=== PATIENT | female | born 1960 | race Caucasian/White ===

== ENCOUNTER → 2020-05-03 | Outpatient (CLI) | payer MEDICARE ==
--- NOTE | 2020-05-03 12:39 | CT ---
EXAMINATION TYPE: CT abdomen pelvis w con DATE OF EXAM: 05/03/2020 COMPARISON: None HISTORY: Abdominal pain and swelling with diarrhea CT DLP: 426.8 mGycm CONTRAST: CT scan of the abdomen and pelvis is performed with Oral Contrast and with IV Contrast, patient injec henry with 100 mL of Isovue 300. FINDINGS: LUNG BASES-: No visible nodule. No infiltrate. LIVER/GB: There is evidence of cholelithiasis. No gallbladder wall thickening is identified. There is mild hepatic steatosis. No space occupying hepatic lesion. Biliary tree is of normal caliber. PANCREAS: No inflammation. No distinct mass. SPLEEN: No splenic enlargement. No lesion seen. ADRENALS: No nodule. No thickening. KIDNEYS/BLADDER: No hydronephrosis. No nephrolithiasis. No distinct renal mass. Urinary bladder g rossly unremarkable. BOWEL: Normal appendix. Normal bowel caliber. No inflammation. GENITAL ORGANS: No gross abnormality. LYMPH NODES: No greater than 1cm abdominal or pelvic lymph nodes are appreciated. AORTA: No significant abnormality. OSSEOUS STRUCTURES: No significant abnormality is seen. OTHER: No significant additional abnormality is seen. IMPRESSION: 1. No evidence for intra-abdominal mass. 2. Uncomplicated cholelithiasis. 3. Mild hepatic steatosis. 4. Mild fecal stasis.
== END | disposition home or self-care (01) ==
LOC: EEVIPCON 10:10 → RADCTMAIN 10:10
PROVIDERS: ATTEND Surgery
DX: K80.20 Calculus of gallbladder without cholecystitis without obstruction (principal); K76.0 Fatty (change of) liver, not elsewhere classified; R19.5 Other fecal abnormalities
CPT/HCPCS: 74177; Q9967

== ENCOUNTER 2020-06-10 21:16 | Emergency (ER) | payer MEDICARE ==
[2020-06-10] MEDS ORDERED: methylPREDNISolone SOD SUCCI 125 MG/2 ML VIAL IV STA (21:40)
[2020-06-10] MEDS ORDERED: FAMOTIDINE 20 MG/2 ML VIAL IV STA (21:40)
[2020-06-10] MEDS ORDERED: diphenhydrAMINE 50 MG/ML 1 ML VIAL IVP STA (21:40)
[2020-06-10] MEDS ORDERED: SODIUM CHLORIDE 0.9% 500 ML 500 ML IV STA (21:40)
--- NOTE | 2020-06-10 21:51 | ED ---
Abdominal Pain HPI - General Chief Complaint: Abdominal Pain Stated Complaint: Abd Pain Time Seen by Provider: 06/10/20 21:25 Source: patient, Caregiver Mode of arrival: ambulatory Limitations: physical limitation - History of Present Illness Initial Comments: 60 year-old female patient with history of Down's Syndrome presents to the emergency department for evaluation of abdominal pain and generalized rash. Patient has been having the pain on and off for the last month. She has lost 5lbs without trying. Sister is present and states that pain occurs every evening. Recently patient has been refusing dinner. She reports normal bowel movements. Normal urination. Denies vomiting, fever, or chills. She did have a CT abdomen and pelvis in April which showed gall stones and fecal stasis, but no other abnormalities. No history of abdominal surgery. Patient denies any recent rash, cough, shortness of breath, chest pain, back pain, numbness, tingli ng, dizziness, weakness, hematuria, dysuria, urinary urgency, urinary frequency, headache, visual changes, or any other complaints. - Related Data Home Medications Medication Instructions Recorded Confirmed Bacitracin Zinc Oint 1 applic TOPICAL BID 06/10/20 06/10/20 Betamethasone Dipropionate 1 applic TOPICAL BID 06/10/20 06/10/20 [Diprolene AF 0.05% Cream] Sulfamethox-Tmp 800-160Mg [Bactrim 1 tab PO Q12H 06/10/20 06/10/20 DS 800-160 mg] Previous Rx's Medication Instructions Recorded Cephalexin [Keflex] 500 mg PO Q6HR #40 cap 06/11/20 Famotidine [Pepcid] 20 mg PO DAILY #3 tablet 06/11/20 predniSONE 50 mg PO DAILY #3 tab 06/11/20 Allergies Allergy/AdvReac Type Severity Reaction Status Date / Time No Known Allergies Allergy Verified 06/10/20 21:59 Review of Systems ROS Statement: Those systems with pertinent positive or pertinent negative responses have been documented in the HPI. ROS Other: All systems not noted in ROS Statement are negative. Past Medical History Additional Past Medical History / Comment(s): Down's Syndrome History of Any Multi-Drug Resistant Organisms: MRSA Date of last positivie culture/infection: 06/02/20 MDRO Source:: FACE Past Surgical History: No Surgical Hx Reported Past Psychological History: No Psychological Hx Reported Smoking Status: Never smoker Past Alcohol Use History: None Reported Past Drug Use History: None Reported General Exam Limitations: physical limitation General appearance: alert, in no apparent distress, other (This is a well- developed, well-nourished adult female patient in no acute distress. Vital signs upon presentation are temperature 98.5F, pulse 132, respirations 20, blood pressure 136/76, pulse ox 99% on room air.) Respiratory exam: Present: normal lung sounds bilaterally. Absent: respiratory distress, wheezes, rales, rhonchi, stridor Cardiovascular Exam: Present: regular rate, normal rhythm, normal heart sounds. Absent: systolic murmur, diastolic murmur, rubs, gallop, clicks GI/Abdominal exam: Present: soft, tenderness (generalized), normal bowel sounds. Absent: distended, guarding, rebound, rigid Neurological exam: Present: alert, oriented X3, CN II-XII intact Psychiatric exam: Present: normal affect, normal mood Skin exam: Present: warm, dry, intact, normal color, rash (Generalized lacy erythematous rash with some petechiae over the anterior legs. ) Course Vital Signs 06/10/20 06/10/20 06/10/20 21:19 22:00 22:52 Temperature 98.5 F 101.2 F H 99.9 F H Pulse Rate 132 H 128 H 70 Respiratory 20 20 Rate Blood Pressure 136/76 104/50 O2 Sat by Pulse 99 97 Oximetry 06/11/20 00:11 Temperature 98.8 F Pulse Rate 60 Respiratory 18 Rate Blood Pressure 99/54 O2 Sat by Pulse 99 Oximetry Medical Decision Making - Medical Decision Making 60-year-old female patient presents to the emergency department today for evalu ation of intermittent abdominal pain over the last month seem to be worse tonight. Physical examination did reveal wounds with surrounding erythema over the face. She also had a generalized erythematous lacy rash consistent with drug eruption. Labs reviewed and did reveal decreased lymphocyte count is 0.8. Coags are normal. Sodium was 133, BUN 21, creatinine 1.48. Glucose 119. Lipase is 408. Urinalysis shows a cloudy appearance with large leukocyte esterase, 14 red blood cells, 182 white blood cells, few bacteria, and rare mucous. She tested negative for COVID-19. She does have a known gallstones I did perform ultrasound of the abdomen which showed a large gallstone in the gallbladder neck but no dilated ducts, no signs of cholecystitis, negative Johnson sign. She did have evidence for urinary tract infection we will change her from the Bactrim she was taking for her face to Keflex. She is instructed to continue applying steroid cream and bacitracin to the face that she was prescribed by the core cutter. We will add Bactrim to her ALLERGY list. She'll be discharged follow up with Dr. Law evaluation. Return parameters were discussed in detail. Sister verbalizes understanding and agrees with this plan. - Lab Data Result diagrams: 06/10/20 21:53 06/10/20 21:53 Lab Results 06/10/20 06/10/20 06/10/20 Range/Units 21:53 21:53 21:53 WBC 4.1 (3.8-10.6) k/uL RBC 4.28 (3.80-5.40) m/uL Hgb 12.8 (11.4-16.0) gm/dL Hct 38.1 (34.0-46.0) % MCV 88.9 (80.0-100.0) fL MCH 29.9 (25.0-35.0) pg MCHC 33.6 (31.0-37.0) g/dL RDW 14.6 (11.5-15.5) % Plt Count 269 (150-450) k/uL MPV 6.9 Neutrophils % 66 % Lymphocytes % 19 % Monocytes % 4 % Eosinophils % 7 % Basophils % 2 % Neutrophils # 2.7 (1.3-7.7) k/uL Lymphocytes # 0.8 L (1.0-4.8) k/uL Monocytes # 0.2 (0-1.0) k/uL Eosinophils # 0.3 (0-0.7) k/uL Basophils # 0.1 (0-0.2) k/uL PT (9.0-12.0) sec INR (<1.2) APTT (22.0-30.0) sec Sodium 133 L (137-145) mmol/L Potassium 4.4 (3.5-5.1) mmol/L Chloride 100 (98-107) mmol/L Carbon Dioxide 21 L (22-30) mmol/L Anion Gap 12 mmol/L BUN 21 H (7-17) mg/dL Creatinine 1.48 H (0.52-1.04) mg/dL Est GFR (CKD-EPI)AfAm 45 (>60 ml/min/1.73 sqM) Est GFR (CKD-EPI)NonAf 39 (>60 ml/min/1.73 sqM) Glucose 119 H (74-99) mg/dL Plasma Lactic Acid Jewel 1.2 (0.7-2.0) mmol/L Calcium 8.5 (8.4-10.2) mg/dL Total Bilirubin 0.3 (0.2-1.3) mg/dL AST 27 (14-36) U/L ALT 12 (4-34) U/L Alkaline Phosphatase 89 (38-126) U/L Total Protein 7.5 (6.3-8.2) g/dL Albumin 3.5 (3.5-5.0) g/dL Lipase 408 H (23-300) U/L Urine Color Urine Appearance (Clear) Urine pH (5.0-8.0) Ur Specific [place] (1.001-1.035) Urine Protein (Negative) Urine Glucose (UA) (Negative) Urine Ketones (Negative) Urine Blood (Negative) Urine Nitrite (Negative) Urine Bilirubin (Negative) Urine Urobilinogen (<2.0) mg/dL Ur Leukocyte Esterase (Negative) Urine RBC (0-5) /hpf Urine WBC (0-5) /hpf Ur Squamous Epith Cells (0-4) /hpf Urine Bacteria (None) /hpf Hyaline Casts (0-2) /lpf Urine Mucus (None) /hpf Coronavirus (PCR) (Not Detectd) 06/10/20 06/10/20 06/10/20 Range/Units 22:21 22:30 23:00 WBC (3.8-10.6) k/uL RBC (3.80-5.40) m/uL Hgb (11.4-16.0) gm/dL Hct (34.0-46.0) % MCV (80.0-100.0) fL MCH (25.0-35.0) pg MCHC (31.0-37.0) g/dL RDW (11.5-15.5) % Plt Count (150-450) k/uL MPV Neutrophils % % Lymphocytes % % Monocytes % % Eosinophils % % Basophils % % Neutrophils # (1.3-7.7) k/uL Lymphocytes # (1.0-4.8) k/uL Monocytes # (0-1.0) k/uL Eosinophils # (0-0.7) k/uL Basophils # (0-0.2) k/uL PT 10.9 (9.0-12.0) sec INR 1.0 (<1.2) APTT 22.9 (22.0-30.0) sec Sodium (137-145) mmol/L Potassium (3.5-5.1) mmol/L Chloride (98-107) mmol/L Carbon Dioxide (22-30) mmol/L Anion Gap mmol/L BUN (7-17) mg/dL Creatinine (0.52-1.04) mg/dL Est GFR (CKD-EPI)AfAm (>60 ml/min/1.73 sqM) Est GFR (CKD-EPI)NonAf (>60 ml/min/1.73 sqM) Glucose (74-99) mg/dL Plasma Lactic Acid Jewel (0.7-2.0) mmol/L Calcium (8.4-10.2) mg/dL Total Bilirubin (0.2-1.3) mg/dL AST (14-36) U/L ALT (4-34) U/L Alkaline Phosphatase (38-126) U/L Total Protein (6.3-8.2) g/dL Albumin (3.5-5.0) g/dL Lipase (23-300) U/L Urine Color Yellow Urine Appearance Cloudy H (Clear) Urine pH 6.0 (5.0-8.0) Ur Specific [place] 1.020 (1.001-1.035) Urine Protein Trace H (Negative) Urine Glucose (UA) Negative (Negative) Urine Ketones Negative (Negative) Urine Blood Negative (Negative) Urine Nitrite Negative (Negative) Urine Bilirubin Negative (Negative) Urine Urobilinogen <2.0 (<2.0) mg/dL Ur Leukocyte Esterase Large H (Negative) Urine RBC 14 H (0-5) /hpf Urine WBC 182 H (0-5) /hpf Ur Squamous Epith Cells 3 (0-4) /hpf Urine Bacteria Few H (None) /hpf Hyaline Casts 1 (0-2) /lpf Urine Mucus Rare H (None) /hpf Coronavirus (PCR) Not Detected (Not Detectd) - Radiology Data Radiology results: report reviewed, image reviewed Ultrasound of the right upper quadrant abdomen was obtained. Report was reviewed in its entirety. Impression by Dr. Pace shows large gallstone in the gallbladder neck. No dilated exudate no gallbladder wall thickening to suggest acute cholecystitis. Disposition Clinical Impression: UTI (urinary tract infection), Drug rash, Staph skin infection Disposition: HOME SELF-CARE Condition: Good Instructions (If sedation given, give patient instructions): Urinary Tract Infection in Women (ED), Cellulitis (ED), Acute Rash (ED) Additional Instructions: Take medications as directed. Follow-up with the primary care physician for recheck in 1-2 days. If abdominal pain continues follow-up with Dr. Law. Return to the emergency department for evaluation for any new, worsening, or concerning symptoms. Prescriptions: Cephalexin [Keflex] 500 mg PO Q6HR #40 cap Famotidine [Pepcid] 20 mg PO DAILY #3 tablet predniSONE 50 mg PO DAILY #3 tab Is patient prescribed a controlled substance at d/c from ED?: No Referrals: Wade Law MD [Medical Doctor] - 1-2 days Time of Disposition: 00:27
[2020-06-10] MEDS ORDERED: ACETAMINOPHEN TAB 325 MG TAB PO STA (22:01)
[2020-06-10 22:06] LABS: Basophils # (A) 0.1 k/uL (0-0.2); Basophils % (A) 2 %; Eosinophils # (A) 0.3 k/uL (0-0.7); Eosinophils % (A) 7 %; HCT 38.1 % (34.0-46.0); HGB 12.8 gm/dL (11.4-16.0); Lymphocytes # (A) 0.8 k/uL (1.0-4.8); Lymphocytes % (A) 19 %; MCH 29.9 pg (25.0-35.0); MCHC 33.6 g/dL (31.0-37.0); MCV 88.9 fL (80.0-100.0); Mean Platelet Volume 6.9; Monocytes # (A) 0.2 k/uL (0-1.0); Monocytes % (A) 4 %; Neutrophils # (A) 2.7 k/uL (1.3-7.7); Neutrophils % (A) 66 %; Platelet Count 269 k/uL (150-450); RBC 4.28 m/uL (3.80-5.40); RDW 14.6 % (11.5-15.5); WBC 4.1 k/uL (3.8-10.6)
[2020-06-10 22:18] LABS: Albumin 3.5 g/dL (3.5-5.0); Calcium 8.5 mg/dL (8.4-10.2); Potassium 4.4 mmol/L (3.5-5.1); Total Bilirubin 0.3 mg/dL (0.2-1.3); Total Protein 7.5 g/dL (6.3-8.2)
[2020-06-10 22:41] LABS: Appearance,Urine Cloudy (Clear); Bacteria,Urine Few /hpf; Bilirubin,Urine Negative (Negative); Blood,Urine Negative (Negative); Color,Urine Yellow; Glucose,Urine (UA) Negative (Negative); Hyaline Casts,Urine 1 /lpf (0-2); Ketones,Urine Negative (Negative); Leukocyte Esterase,Urine Large (Negative); Mucus,Urine Rare /hpf; Nitrite,Urine Negative (Negative); Protein,Urine Trace (Negative); RBC,Urine 14 /hpf (0-5); Squamous Epithelial Cell,Urine 3 /hpf (0-4); Urobilinogen,Urine <2.0 mg/dL (<2.0); WBC,Urine 182 /hpf (0-5)
[2020-06-10] MEDS ORDERED: cefTRIAXone IN SWFI 1,000 MG/10 ML SYRINGE IVP STA (22:48)
[2020-06-10 23:18] LABS: Partial Thromboplastin Time 22.9 sec (22.0-30.0); Prothrombin Time 10.9 sec (9.0-12.0)
--- NOTE | 2020-06-11 00:06 | US ---
EXAMINATION TYPE: US abdomen limited DATE OF EXAM: 06/10/2020 COMPARISON: CT 06/10/2020 CLINICAL HISTORY: elevated lipase; hx gallstones. Limited exam due to overlying bowel gas EXAM MEASUREMENTS: Liver Length: 14.9 cm Gallbladder Wall: 0.1 cm CBD: 0.3 cm Right Kidney: 8.4 x 3.1 x 3.7 cm No focal liver defect. Pancreas: Obscured by bowel gas Liver: wnl Gallbladder: Stone visualized measuring 1.5 cm Evidence for sonographic Johnson's sign: No CBD: wnl Right Kidney: No hydronephrosis or masses seen IMPRESSION: There is a large gallstone in the gallbladder neck. No dilated ducts. No gallbladder wall thickening to suggest acute cholecystitis.
[2020-06-11 00:12] VITALS: BP 99/54; PULSE 60; RESP 18; TEMP 98.8
[2020-06-11] MEDS ORDERED: CEPHALEXIN 500MG STARTER PACK 4 CAP BTL PO STA (00:25)
== END 2020-06-11 00:56 | disposition home or self-care (01) ==
LOC: EEVIPCON 21:16 → EC 21:16
DX: N39.0 Urinary tract infection, site not specified (principal); L08.89 Other specified local infections of the skin and subcutaneous tissue; L27.0 Generalized skin eruption due to drugs and medicaments taken internally; K80.80 Other cholelithiasis without obstruction; Z20.822 Contact with and (suspected) exposure to COVID-19; Z79.899 Other long term (current) drug therapy; Z86.14 Personal history of Methicillin resistant Staphylococcus aureus infection; B95.8 Unspecified staphylococcus as the cause of diseases classified elsewhere
CPT/HCPCS: 36415; 80053; 83605; 83690; 85025; 85610; 85730; 81001; 87086; 87635; 76705; 99284; 96374; 96375 ×3; J1200; J2930; J0696

== ENCOUNTER → 2020-11-09 | Outpatient (CLI) | payer MEDICARE ==
[2020-11-10 02:28] LABS: Gliadin AB IgA, Deaminated NEGATIVE (NEGATIVE); Gliadin AB IgA, Unit 11.6 U/mL; Gliadin AB IgG, Deaminated NEGATIVE (NEGATIVE)
== END | disposition home or self-care (01) ==
LOC: LABWHC1 16:19
PROVIDERS: ATTEND Nurse Practitioner
DX: K52.9 Noninfective gastroenteritis and colitis, unspecified (principal)
CPT/HCPCS: 36415; 83516; 83630; 85652; 86140; 87045; 87046; 87328; 87329

== ENCOUNTER → 2021-07-06 | Outpatient (CLI) | payer MEDICARE ==
--- NOTE | 2021-07-06 17:58 | BD ---
EXAMINATION TYPE: Axial Bone Density DATE OF EXAM: 07/06/2021 COMPARISON: NONE CLINICAL HISTORY: 61 YR OLD FEMALE.....ICD-10 CODE: Z78.0 MENOPAUSAL Height: 58.8 Weight: 119 FRAX RISK QUESTIONS: NOTHING TO NOTE HERE RISK FACTORS HISTORY OF: Family History of Osteoporosis: GRANDMOTHER NO HIP FX Postmenopausal woman: YES, AT ABOUT 54 YRS OLD Hyperparathyroidism: NO Adrenal Insufficiency: NO MEDICATIONS: Additional Medications: ANTISPASMODIC FOR COLON, VIT D, Additional History: COLON, AND VIT D, PT CHALLENGED...SISTER ACCOMPANIED HER TODAY.. EXAM MEASUREMENTS: Bone mineral densitometry was performed using the [employer] System. Bone mineral density as measured about the Lumbar spine is: ----- L1-L4(G/cm2): 1.017 T Score Values are as follows: ----- L1: -1.1 ----- L2: -1.2 ----- L3: -1.6 ----- L4: -1.7 ----- L1-L4: -1.4 Bone mineral density THIS IS HER FIRST DEXA SCAN......BASELINE STUDY Bone mineral density about the R hip (g/cm2): 0.748 Bone mineral density about the L hip (g/cm2): 0.456 T Score values are as follows: -----R Neck: -2.6 -----L Neck: -2.3 -----R Total: -2.1 -----L Total: -2.0 Bone mineral density BASELINE STUDY FRAX%s: THERE IS A 11.9% CHANCE FOR A MAJOR OSTEOPOROTIC FX AND A 2.5% FOR HER HIPS.....PROBABILI TY FOR FX IN 10 YRS TIME IMPRESSION: Osteoporosis (T Score less than -2.5). There is increased fracture risk and therapy is usually indicated based on age. Re-Screen 1-2 years. NOTE: T-SCORE=SD OF THE YOUNG ADULT MEAN.
== END | disposition home or self-care (01) ==
LOC: RADBDWWP 09:53
PROVIDERS: ATTEND Obstetrics & Gynecology
DX: M81.0 Age-related osteoporosis without current pathological fracture (principal)
CPT/HCPCS: 77067; 77080

== ENCOUNTER → 2021-09-25 | Outpatient (CLI) | payer MEDICARE ==
--- NOTE | 2021-09-25 09:13 | US ---
EXAMINATION TYPE: US abdomen complete DATE OF EXAM: 09/25/2021 COMPARISON: CT May 03, 2020 CLINICAL HISTORY: OTHER CHOLELITHIASIS WITHOUT OBSTRUCTION. Patient's father was present for the exam and gave patient history: abdominal pain. EXAM MEASUREMENTS: Liver Length: 13.1 cm Gallbladder Wall: 0.17 cm CBD: 0.28 cm Spleen: 9.1 cm Right Kidney: 9.0 x 4.2 x 3.6 cm Left Kidney: 9.8 x 3.9 x 4.0 cm Exam is limited due to gas. Pancreas: Limited due to gas. Liver: Appears slightly coarse in echotexture. Hyperechoic area seen within the right lobe: 0.8 x 1. 0 x 0.8 cm. Gallbladder: Hyperechoic area with posterior shadowing seen within: 2.1 x 1.6 x 1.2 cm. Evidence for sonographic Johnson's sign: No CBD: Portions seen appear wnl. Spleen: Appears wnl. Right Kidney: Limited due to rib shadow. Hyperechoic focus seen: 0.3 x 0.4 x 0.4 cm. Left Kidney: Hyperechoic focus seen: 0.4 x 0.4 x 0.4 cm. Upper IVC: Appears wnl Abd Aorta: Iliacs are obscured by bowel gas. No aneurysm and visualized abdominal aorta. IVC is patent near the hepatic dome. Visualized pancreas shows no obvious mass or ductal dilatation. Visualized liver is slightly heterogeneous in appearance without distinct mass or ductal dilatation. There is 2.1 cm shadowing hyperechoic lesion within gallbladder favoring mobile stone. Technologist d oes not say if mobile. A large polyp would be more worrisome. No surrounding fluid or abnormal wall t hickening. Nonspecific nonshadowing tiny hyperechoic foci bilateral kidneys could reflect nonobstruct ing renal calculi. No hydronephrosis seen bilaterally. IMPRESSION: Single large gallstone or possible large polyp within gallbladder redemonstrated. No seco ndary ultrasound evidence for acute cholecystitis. Consider excision of gallbladder as large polyp ca nnot be excluded.
== END | disposition home or self-care (01) ==
LOC: RADUSWWP 07:00
PROVIDERS: ATTEND Internal Medicine Geriatric Medicine
DX: K80.80 Other cholelithiasis without obstruction (principal)
CPT/HCPCS: 76700

== ENCOUNTER 2023-10-31 09:53 | Observation (INO) | payer MEDICARE, OTHER ==
--- NOTE | 2023-10-31 11:17 | XR ---
EXAMINATION TYPE: XR ankle complete RT DATE OF EXAM: 10/31/2023 COMPARISON: NONE HISTORY: Pain TECHNIQUE: Frontal, lateral and oblique images of the right ankle are obtained. COMPARISON: None. FINDINGS: There is no acute fracture/dislocation evident. The joint spaces appear within normal cummins its. The overlying soft tissue appears unremarkable. IMPRESSION: There is no acute fracture or dislocation seen.
[2023-10-31 12:00] LABS: Basophils % (A) 0 %; Eosinophils % (A) 0 %; HCT 38.8 % (34.0-46.0); HGB 12.7 gm/dL (11.4-16.0); Lymphocytes # (A) 0.6 k/uL (1.0-4.8); Lymphocytes % (A) 7 %; MCH 32.4 pg (25.0-35.0); MCHC 32.8 g/dL (31.0-37.0); MCV 98.8 fL (80.0-100.0); Mean Platelet Volume 8.4; Monocytes # (A) 0.7 k/uL (0-1.0); Monocytes % (A) 8 %; Neutrophils # (A) 7.1 k/uL (1.3-7.7); Neutrophils % (A) 83 %; Platelet Count 218 k/uL (150-450); RBC 3.93 m/uL (3.80-5.40); WBC 8.6 k/uL (3.8-10.6)
--- NOTE | 2023-10-31 12:31 | ED ---
General Adult HPI - General Chief complaint: Extremity Injury, Lower Stated complaint: Abn Labs Time Seen by Provider: 10/31/23 10:40 Source: patient, family, RN notes reviewed Mode of arrival: wheelchair Limitations: no limitations - History of Present Illness Initial comments: 63-year-old female presents to the emergency department with family for maame luation of abnormal labs, right ankle pain x 2 days. Patient's family states that she has been dealing with pseudogout for the past 2 weeks. She has been on meloxicam. Family states that she stopped the meloxicam because she had elevated creatinine. Family states that over the past 2 days she has had pain to the medial aspect of the right ankle. They also report that the patient has been having "hallucinations" over the past 2 days as well. Patient is incontinent. She is unable to make it to the bathroom. Family reports that they are having trouble caring for her as she cannot bear weight. - Related Data Home Medications Medication Instructions Recorded Confirmed Alendronate Sodium [Fosamax] 70 mg PO MO 10/31/23 10/31/23 Cyanocobalamin (Vitamin B-12) 1,000 mcg PO DAILY 10/31/23 10/31/23 [Vitamin B-12] FLUoxetine HCL [Sarafem] 20 mg PO DAILY 10/31/23 10/31/23 Inulin/Chromium Picolinate [Fiber 2 tab PO DAILY 10/31/23 10/31/23 Gummies Chew] Allergies Allergy/AdvReac Type Severity Reaction Status Date / Time gluten Allergy Nausea & Verified 10/31/23 13:28 Vomiting Milk Containing Products Allergy Nausea & Verified 10/31/23 13:28 (Dairy) Vomiting [Dairy] Review of Systems ROS Statement: Those systems with pertinent positive or pertinent negative responses have been documented in the HPI. ROS Other: All systems not noted in ROS Statement are negative. Past Medical History Additional Past Medical History / Comment(s): Down's Syndrome, gout, gluten intolerant, History of Any Multi-Drug Resistant Organisms: MRSA Date of last positivie culture/infection: 06/02/20 MDRO Source:: FACE Past Surgical History: No Surgical Hx Reported Past Psychological History: No Psychological Hx Reported Smoking Status: Never smoker Past Alcohol Use History: None Reported Past Drug Use History: None Reported General Exam Limitations: no limitations General appearance: alert, in no apparent distress Head exam: Present: atraumatic, normocephalic, normal inspection Eye exam: Present: normal appearance, PERRL, EOMI. Absent: scleral icterus, conjunctival injection, periorbital swelling ENT exam: Present: normal exam, mucous membranes moist Respiratory exam: Present: normal lung sounds bilaterally. Absent: respiratory distress, wheezes, rales, rhonchi, stridor Cardiovascular Exam: Present: regular rate, normal rhythm. Absent: systolic murmur, diastolic murmur, rubs, gallop, clicks GI/Abdominal exam: Present: soft, hyperactive bowel sounds. Absent: distended, tenderness, guarding, rebound, rigid Extremities exam: Present: full ROM, tenderness (right medial ankle TTP ), normal capillary refill, other (distal pulses 2+). Absent: pedal edema, joint swelling, calf tenderness Neurological exam: Present: alert, altered Psychiatric exam: Present: normal affect, normal mood Skin exam: Present: warm, dry, intact, normal color. Absent: rash Course Vital Signs 10/31/23 10/31/23 10/31/23 09:54 14:25 17:26 Temperature 98.2 F 99.2 F Pulse Rate 60 78 61 Respiratory 18 16 18 Rate Blood Pressure 93/64 121/66 111/69 O2 Sat by Pulse 100 97 96 Oximetry 10/31/23 20:11 Temperature Pulse Rate 63 Respiratory 18 Rate Blood Pressure 113/64 O2 Sat by Pulse 97 Oximetry Medical Decision Making - Medical Decision Making Was pt. sent in by a medical professional or institution ([facility] Mancia, SCIENTIFIC ILLUSTRATOR, urgent care, hospital, or [facility]...) When possible be specific @ -No Did you speak to anyone other than the patient for history (EMS, parent, family, police, friend...)? What history was obtained from this source @ -Patients family provided history for this patient Did you review nursing and triage notes (agree or disagree)? Why? @ -I reviewed and agree with nursing and triage notes Were old charts reviewed (outside hosp., previous admission, EMS record, old EKG, old radiological studies, urgent care reports/EKG's, [facility] records)? Report findings @ -No old charts were reviewed Differential Diagnosis (chest pain, altered mental status, abdominal pain women, abdominal pain men, vaginal bleeding, weakness, fever, dyspnea, syncope, headache, dizziness, GI bleed, back pain, seizure, CVA, palpatations, mental health, musculoskeletal)? @ -Differential Musculoskeletal Muscular strain, contusion, ligament sprain, fracture, arthritis, septic arthritis, bursitis, cellulitis, muscle spasm, nerve compression, DVT, arterial occlusion, herpes zoster, electrolyte abnormality, tumor.... This is not meant to be in all inclusive list EKG interpreted by me (3pts min.). @ -EKG at 1133 shows sinus bradycardia rate 59, ND 137, QRS 90, QTQTc 121136 X-rays interpreted by me (1pt min.). @ -X-ray of the right ankle shows no evidence of acute fracture or dislocation X-ray of the chest shows mild interstitial edema CT interpreted by me (1pt min.). @ -CT brain shows no evidence of acute process U/S interpreted by me (1pt. min.). @ -None done What testing was considered but not performed or refused? (CT, X-rays, U/S, labs)? Why? @ -None What meds were considered but not given or refused? Why? @ -None Did you discuss the management of the patient with other professionals (professionals i.e. , PA, SCIENTIFIC ILLUSTRATOR, lab, RT, psych nurse, group social worker, analyst sales, teacher, air defence officer, casework manager)? Give summary @ -Case discussed with Dr. Cat who is accepting of the admission for observation, IV antibiotics, orthopedic consultation Was smoking cessation discussed for >3mins.? @ -No Was critical care preformed (if so, how long)? @ -No Were there social determinants of health that impacted care today? How? (Homelessness, low income, unemployed, alcoholism, drug addiction, transportation, low edu. Level, literacy, decrease access to med. care, custodial, rehab)? @ -No Was there de-escalation of care discussed even if they declined (Discuss DNR or withdrawal of care, Hospice)? DNR status @ -No What co-morbidities impacted this encounter? (DM, HTN, Smoking, COPD, CAD, Cancer, CVA, ARF, Chemo, Hep., AIDS, mental health diagnosis, sleep apnea, morbid obesity)? @ -None Was patient admitted / discharged? Hospital course, mention meds given and route, prescriptions, significant lab abnormalities, going to OR and other pertinent info. @ -Admitted. Patient presented to the emergency department for evaluation of right ankle pain, altered mental status. History is provided by the patient's family. Laboratory studies obtained. CBC, CMP essentially unremarkable.BNP 694; UA shows positive nitrite, small leukocyte Estrace, 13 WBCs, WBC clumps; patient negative for COVID, influenza, RSV. X-rays of the right ankle show no evidence of acute fracture or dislocation. Chest x-ray shows possible mild interstitial edema with very minimal pleural effusions. Patient also underwent CT brain for altered mental status which showed no acute process. Patient started on slow maintenance fluids, provided a dose of Rocephin. She will be admitted for observation with orthopedic consultation. This was discussed with Dr. Cat. Family understanding and agreeable with this plan. Patient stable at time of admission. At Undiagnosed new problem with uncertain prognosis? @ -No Drug Therapy requiring intensive monitoring for toxicity (Heparin, Nitro, Insulin, Cardizem)? @ -No Were any procedures done? @ -No Diagnosis/symptom? @ -UTI, altered mental status, unable to ambulate Acute, or Chronic, or Acute on Chronic? @ -Acute Uncomplicated (without systemic symptoms) or Complicated (systemic symptoms)? @ -Uncomplicated Side effects of treatment? @ -No Exacerbation, Progression, or Severe Exacerbation? @ -No Poses a threat to life or bodily function? How? (Chest pain, [place], NH, pneumonia, PE, COPD, DKA, ARF, appy, cholecystitis, CVA, Diverticulitis, Homicidal, Suicidal, threat to staff... and all critical care pts) @ -No - Lab Data Result diagrams: 10/31/23 11:23 10/31/23 11:23 Lab Results 10/31/23 10/31/23 10/31/23 Range/Units 11:23 11:23 14:22 WBC 8.6 (3.8-10.6) k/uL RBC 3.93 (3.80-5.40) m/uL Hgb 12.7 (11.4-16.0) gm/dL Hct 38.8 (34.0-46.0) % MCV 98.8 (80.0-100.0) fL MCH 32.4 (25.0-35.0) pg MCHC 32.8 (31.0-37.0) g/dL RDW 13.0 (11.5-15.5) % Plt Count 218 (150-450) k/uL MPV 8.4 Neutrophils % 83 % Lymphocytes % 7 % Monocytes % 8 % Eosinophils % 0 % Basophils % 0 % Neutrophils # 7.1 (1.3-7.7) k/uL Lymphocytes # 0.6 L (1.0-4.8) k/uL Monocytes # 0.7 (0-1.0) k/uL Eosinophils # 0.0 (0-0.7) k/uL Basophils # 0.0 (0-0.2) k/uL Sodium 136 L (137-145) mmol/L Potassium 4.0 (3.5-5.1) mmol/L Chloride 103 (98-107) mmol/L Carbon Dioxide 28 (22-30) mmol/L Anion Gap 5 mmol/L BUN 25 H (7-17) mg/dL Creatinine 1.21 H (0.52-1.04) mg/dL Est GFR (CKD-EPI)AfAm 56 (>60 ml/min/1.73 sqM) Est GFR (CKD-EPI)NonAf 49 (>60 ml/min/1.73 sqM) Glucose 149 H (74-99) mg/dL Calcium 8.7 (8.4-10.2) mg/dL Phosphorus 3.0 (2.5-4.5) mg/dL Magnesium 1.9 (1.6-2.3) mg/dL Total Bilirubin 0.8 (0.2-1.3) mg/dL AST 21 (14-36) U/L ALT 10 (4-34) U/L Alkaline Phosphatase 71 (38-126) U/L Ammonia (<30) umol/L NT-Pro-B Natriuret Pep 694 pg/mL Total Protein 6.6 (6.3-8.2) g/dL Albumin 3.4 L (3.5-5.0) g/dL Urine Color Yellow Urine Appearance Cloudy H (Clear) Urine pH 5.5 (5.0-8.0) Ur Specific [place] 1.020 (1.001-1.035) Urine Protein Trace H (Negative) Urine Glucose (UA) Negative (Negative) Urine Ketones Trace H (Negative) Urine Blood Negative (Negative) Urine Nitrite Positive H (Negative) Urine Bilirubin Negative (Negative) Urine Urobilinogen <2.0 (<2.0) mg/dL Ur Leukocyte Esterase Small H (Negative) Urine RBC <1 (0-5) /hpf Urine WBC 13 H (0-5) /hpf Urine WBC Clumps Few H (None) /hpf Ur Squamous Epith Cells <1 (0-4) /hpf Urine Bacteria Many H (None) /hpf Hyaline Casts 1 (0-2) /lpf Urine Mucus Occasional H (None) /hpf Influenza Type A (PCR) (Not Detectd) Influenza Type B (PCR) (Not Detectd) RSV (PCR) (Not Detectd) SARS-CoV-2 (PCR) (Not Detectd) 10/31/23 10/31/23 Range/Units 15:00 15:00 WBC (3.8-10.6) k/uL RBC (3.80-5.40) m/uL Hgb (11.4-16.0) gm/dL Hct (34.0-46.0) % MCV (80.0-100.0) fL MCH (25.0-35.0) pg MCHC (31.0-37.0) g/dL RDW (11.5-15.5) % Plt Count (150-450) k/uL MPV Neutrophils % % Lymphocytes % % Monocytes % % Eosinophils % % Basophils % % Neutrophils # (1.3-7.7) k/uL Lymphocytes # (1.0-4.8) k/uL Monocytes # (0-1.0) k/uL Eosinophils # (0-0.7) k/uL Basophils # (0-0.2) k/uL Sodium (137-145) mmol/L Potassium (3.5-5.1) mmol/L Chloride (98-107) mmol/L Carbon Dioxide (22-30) mmol/L Anion Gap mmol/L BUN (7-17) mg/dL Creatinine (0.52-1.04) mg/dL Est GFR (CKD-EPI)AfAm (>60 ml/min/1.73 sqM) Est GFR (CKD-EPI)NonAf (>60 ml/min/1.73 sqM) Glucose (74-99) mg/dL Calcium (8.4-10.2) mg/dL Phosphorus (2.5-4.5) mg/dL Magnesium (1.6-2.3) mg/dL Total Bilirubin (0.2-1.3) mg/dL AST (14-36) U/L ALT (4-34) U/L Alkaline Phosphatase (38-126) U/L Ammonia <9 (<30) umol/L NT-Pro-B Natriuret Pep pg/mL Total Protein (6.3-8.2) g/dL Albumin (3.5-5.0) g/dL Urine Color Urine Appearance (Clear) Urine pH (5.0-8.0) Ur Specific [place] (1.001-1.035) Urine Protein (Negative) Urine Glucose (UA) (Negative) Urine Ketones (Negative) Urine Blood (Negative) Urine Nitrite (Negative) Urine Bilirubin (Negative) Urine Urobilinogen (<2.0) mg/dL Ur Leukocyte Esterase (Negative) Urine RBC (0-5) /hpf Urine WBC (0-5) /hpf Urine WBC Clumps (None) /hpf Ur Squamous Epith Cells (0-4) /hpf Urine Bacteria (None) /hpf Hyaline Casts (0-2) /lpf Urine Mucus (None) /hpf Influenza Type A (PCR) Not Detected (Not Detectd) Influenza Type B (PCR) Not Detected (Not Detectd) RSV (PCR) Not Detected (Not Detectd) SARS-CoV-2 (PCR) Not Detected (Not Detectd) Disposition Clinical Impression: Right ankle pain, UTI (urinary tract infection), Altered mental status Disposition: ADMITTED IP TO THIS HOSP Condition: Stable Is patient prescribed a controlled substance at d/c from ED?: No
[2023-10-31 12:38] LABS: NT-Pro-B-Type Natriuretic Pept 694 pg/mL
[2023-10-31 12:41] LABS: ALT 10 U/L (4-34); AST 21 U/L (14-36); African American GFR (CKD) 56 (>60 ml/min/1.73 sqM); Albumin 3.4 g/dL (3.5-5.0); Alkaline Phosphatase 71 U/L (38-126); Anion Gap 5 mmol/L; Blood Urea Nitrogen 25 mg/dL (7-17); Calcium 8.7 mg/dL (8.4-10.2); Carbon Dioxide 28 mmol/L (22-30); Chloride 103 mmol/L (98-107); Glucose 149 mg/dL (74-99); Magnesium 1.9 mg/dL (1.6-2.3); Non-African American GFR(CKD) 49 (>60 ml/min/1.73 sqM); Sodium 136 mmol/L (137-145); Total Bilirubin 0.8 mg/dL (0.2-1.3); Total Protein 6.6 g/dL (6.3-8.2)
--- NOTE | 2023-10-31 13:45 | XR ---
EXAMINATION TYPE: XR chest 2V DATE OF EXAM: 10/31/2023 COMPARISON: NONE HISTORY: Shortness of breath TECHNIQUE: Frontal and lateral views of the chest are obtained. FINDINGS: Scattered senescent parenchymal changes noted. Hyperinflation compatible with COPD. Pulmonary venous congestion with suggestion of interstitial edema and mild cardiomegaly. Tiny effusio ns. Mediastinal structures are stable and grossly unremarkable. No evidence for hilar prominence. Degenerative changes dorsal spine. IMPRESSION: 1. Correlate for mild interstitial edema.
--- NOTE | 2023-10-31 13:54 | CT ---
EXAMINATION TYPE: CT brain wo con DATE OF EXAM: 10/31/2023 COMPARISON: None INDICATION: AMS DLP: 1125.4 mGycm, Automated exposure control for dose reduction was used. CONTRAST: None CT of the brain is performed utilizing 3 mm thick sections through the posterior fossa and 3 mm thick sections through the remaining calvarium. Study is performed within 24 hours of arrival to the hosp ital. No abnormal hyperdensity is present to suggest an acute intracranial hemorrhage. No mass lesion is evident. No acute infarcts are evident. Ventricles and sulci are mildly prominent. for the patient age. Paranasal sinuses and mastoid air cells within the [id number] are clear. IMPRESSION: 1. Mild atrophy. No acute intracranial process. Follow-up MRI can be performed as clinically indicat ed.
[2023-10-31 14:44] LABS: Appearance,Urine Cloudy (Clear); Bacteria,Urine Many /hpf; Bilirubin,Urine Negative (Negative); Blood,Urine Negative (Negative); Color,Urine Yellow; Glucose,Urine (UA) Negative (Negative); Hyaline Casts,Urine 1 /lpf (0-2); Ketones,Urine Trace (Negative); Leukocyte Esterase,Urine Small (Negative); Mucus,Urine Occasional /hpf; Nitrite,Urine Positive (Negative); PH, Urine 5.5 (5.0-8.0); Protein,Urine Trace (Negative); RBC,Urine <1 /hpf (0-5); Squamous Epithelial Cell,Urine <1 /hpf (0-4); Urobilinogen,Urine <2.0 mg/dL (<2.0); WBC,Urine 13 /hpf (0-5)
[2023-10-31] MEDS ORDERED: NALOXONE 0.4 MG/ML 1 ML VIAL IV PRN (16:30)
[2023-10-31] MEDS: SODIUM CHLORIDE 0.9% 1,000 ML IV SCH (17:18)
[2023-10-31] MEDS: MORPHINE SULFATE 2 MG/ML SYRINGE IV PRN (23:07)
[2023-10-31 23:57] LABS: Glucose,Whole Blood 114 mg/dL (70-110)
--- NOTE | 2023-11-01 07:16 | P.HPIM ---
History of Present Illness H&P Date: 10/31/23 HISTORY OF PRESENT ILLNESS: 63-year-old With active medical history of Down syndrome, hypothyroidism, gout, gluten intolerance, chronic constipation, osteoporosis and depression who has not been in the hospital long time with no comorbidity of any type except for parkinsonism brought to the emergency department by family today for evaluation because of significant altered mental status with worsening confusion than normal for the last 2 days also has been dealing with worsening pain and discomfort in the right ankle area not been able to walk she had dealt with gout and pseudogout in the past and was seeing orthopedic earlier she has been taking meloxicam for arthritis. Also family had reported slight hallucination for the last 2 days patient is having incontinence she is not able to make it to the bathroom because of her foot pain not been able to put any weight on the right ankle. Was evaluated in the emergency department CAT scan of the brain showed mild atrophy with no intracranial hemorrhage or abnormality. X-ray of the ankle area showed no acute fracture or dislocation. Chest x-ray correlate with mild interstitial edema EKG showed sinus bradycardia with pulse rate 59 bpm. Laboratory values surprisingly showed acute kidney injury with creatinine of 1.1 bun 25 GFR of 49 with blood sugar of 149 as well. White blood cell was 8.6 with hemoglobin 12.7 hematocrit 38.8 proBNP was 694 ammonia level less than 9 UA showed many bacteria with few WBC clumps some RBC and positive for nitrates. COVID influenza and RSV were negative. She was giving 2 g of Rocephin IV for UTI continue anti-inflammatory admitted to the hospital will be seeing orthopedic for her ankle pain. REVIEW OF SYSTEMS: CONSTITUTIONAL: Mildly overweight Down syndrome in no acute respiratory distress. EYES: No icterus sclerae, no conjunctivitis. EARS, NOSE, MOUTH, THROAT, and FACE: No sore throat, lymphadenopathy, carotid b ruits or deformity. RESPIRATORY: No SOB cough or wheezes. CARDIOVASCULAR: No CP, Palpitation, PND, Orthopnea, or angina. GASTROINTESTINAL: No Abd pain, Nausea or vomiting, no Diarrhea or constipation, No GI Bleed, no distention or masses. GENITOURINARY: Negative for Hematuria or UTI, no kidney stones. INTEGUMENT/BREAST: Negative for any muscular injury with mild osteoarthritis.. HEMATOLOGIC/LYMPHATIC: Negative for bleed or purpura. MUSCULOSKELTAL: Negative for Myalgia or arthralgia. Significant pain and discomfort in the right ankle area. NEURLOGICAL: No LOC, Sz or syncope, blurred vision dizziness or abnormality.. BEHAVIORAL/PSYCH: Negative. ENDOCRINE: Negative. PHYSICAL EXAMINATION: General Appearance: Alert, confused, no distress, appears stated age. Neck HEENT: Supple, no lymphadenopathy, no thyroid enlargement, no carotid bruits. Lungs: Clear to auscultation without crackles or wheezes no rhonchi, no deformity. Chest Wall: Decreased expansion with deep inspiration no tenderness and no deformity was found on exam, no costochondral pain or discomfort. Heart: Regular rate and rhythm, S1, S2 normal, no murmur, rub or gallop. Back: Symmetric, no curvature, ROM normal, no CVA tenderness. Abdomen: Soft, non-tender, bowel sounds active all four quadrants, no masses, no organomegaly. Slight discomfort in the lower abdominal region area. Extremities: Extremities normal, atraumatic, no cyanosis or edema. Right ankle has slight swelling and discomfort but any movement slightly with warm but not hot no sign of infection. Pulses: 2+ and symmetric. Skin: Skin color, texture, tugor normal, no rashes or lesions. Neurologic: Alert oriented confused cranial nerves II through XII intact, no motor deficit. ASSESSMENT AND PLAN: _Altered mental status: Combination of UTI along with gout possibly pseudogout dehydration acute kidney injury. _UTI no sign of sepsis: Patient was giving 2 g of Rocephin initially Rocephin 1 g daily will be done till the culture is back I will switch patient to oral cephalexin when ready. _Acute kidney injury: Most likely ATN from dehydration will probably slight chronic kidney disease. _Ankle pain: Either pseudogout or gout uric acid with sed rate will be done, colchicine 0.6 mg daily can be beneficial for now till the final conclusion is made which will help the inflammation as well. _Hyperglycemia: Would not show diagnosis of diabetes, A1c done with lab Accu- Chek with sliding scale coverage. _Cognitive decline: With Down syndrome at age 63 with finding on her brain CAT scan consistent with atrophy. Whether using donepezil or rivastigmine is helpful or not at this point not clear. _GI prophylaxis: Patient be on pantoprazole 40 mg daily. _DVT prophylaxis: Early mobilization and knee-high LINWOOD hose will be done. CODE STATUS: Full code. Admit patient to the inpatient service for more than 2 night stay. Past Medical History Past Medical History: Dementia Additional Past Medical History / Comment(s): Down's Syndrome, pseudogout, gluten intolerant, History of Any Multi-Drug Resistant Organisms: MRSA Date of last positivie culture/infection: 06/02/20 MDRO Source:: FACE Past Surgical History: No Surgical Hx Reported Past Psychological History: No Psychological Hx Reported Smoking Status: Never smoker Past Alcohol Use History: None Reported Past Drug Use History: None Reported Medications and Allergies Home Medications Medication Instructions Recorded Confirmed Type Alendronate Sodium [Fosamax] 70 mg PO MO 10/31/23 10/31/23 History Cyanocobalamin (Vitamin B-12) 1,000 mcg PO DAILY 10/31/23 10/31/23 History [Vitamin B-12] FLUoxetine HCL [Sarafem] 20 mg PO DAILY 10/31/23 10/31/23 History Inulin/Chromium Picolinate [Fiber 2 tab PO DAILY 10/31/23 10/31/23 History Gummies Chew] Allergies Allergy/AdvReac Type Severity Reaction Status Date / Time gluten Allergy Nausea & Verified 10/31/23 13:28 Vomiting Milk Containing Products Allergy Nausea & Verified 10/31/23 13:28 (Dairy) Vomiting [Dairy] Physical Exam Vitals: Vital Signs Temp Pulse Resp BP Pulse Ox 10/31/23 20:11 63 18 113/64 97 10/31/23 17:26 99.2 F 61 18 111/69 96 10/31/23 14:25 78 16 121/66 97 10/31/23 09:54 98.2 F 60 18 93/64 100 Intake and Output 10/31/23 10/31/23 10/31/23 06:59 14:59 22:59 Other: Weight 49.895 kg 49.895 kg Results CBC & Chem 7: 10/31/23 11:23 10/31/23 11:23 Labs: Abnormal Lab Results - Last 24 Hours (Table) 10/31/23 10/31/23 10/31/23 Range/Units 11:23 11:23 14:22 Lymphocytes # 0.6 L (1.0-4.8) k/uL Sodium 136 L (137-145) mmol/L BUN 25 H (7-17) mg/dL Creatinine 1.21 H (0.52-1.04) mg/dL Glucose 149 H (74-99) mg/dL Albumin 3.4 L (3.5-5.0) g/dL Urine Appearance Cloudy H (Clear) Urine Protein Trace H (Negative) Urine Ketones Trace H (Negative) Urine Nitrite Positive H (Negative) Ur Leukocyte Esterase Small H (Negative) Urine WBC 13 H (0-5) /hpf Urine WBC Clumps Few H (None) /hpf Urine Bacteria Many H (None) /hpf Urine Mucus Occasional H (None) /hpf Thrombosis Risk Factor Assmnt - Choose All That Apply Each Factor Represents 1 point: Age 41-60 years Thrombosis Risk Factor Assessment Total Risk Factor Score: 1 Thrombosis Risk Factor Assessment Level: Low Risk
[2023-11-01] MEDS: INSULIN ASPART (NovoLOG) 100 UNIT/ML VIAL SQ SCH (08:01)
[2023-11-01 08:51] LABS: HCT 37.2 % (37.2-46.3); HGB 12.5 g/dL (12.0-15.0); MCHC 33.6 g/dL (32.0-37.0); MCV 95.1 FL (80.0-97.0); Mean Platelet Volume 10.1 FL (9.5-12.2); NRBC Per 100 WBC 0 X 10*3/uL (0.00-0.01); Platelet Count 258 X 10*3/uL (140-440); RBC 3.91 X 10*6/uL (4.10-5.20); WBC 7.61 X 10*3/uL (4.50-10.00)
[2023-11-01] MEDS ORDERED: NON FORMULARY DRUG (Inulin/Chromium Picolinate [Fiber Gummies Chew] 1 EACH Tab.Chew) PO SCH (09:00)
[2023-11-01] MEDS: CYANOCOBALAMIN 500 MCG TAB PO SCH (10:10)
[2023-11-01] MEDS: PANTOPRAZOLE 40 MG TABLET PO SCH (10:10)
[2023-11-01] MEDS: FLUoxetine HCL 20 MG CAP PO SCH (10:10)
[2023-11-01] MEDS: COLCHICINE 0.6 MG EACH PO SCH (10:10)
[2023-11-01 10:48] LABS: BUN/Creat Ratio 17.09 Ratio (12.00-20.00); Blood Urea Nitrogen 18.8 mg/dL (9.0-27.0); Glucose 108 mg/dL (70-110)
[2023-11-01 10:49] LABS: ALT 10 U/L (8-44); AST 17 U/L (13-35); Albumin 3.4 g/dL (3.8-4.9); Albumin/Globulin Ratio 1.06 Ratio (1.60-3.17); Alkaline Phosphatase 71 U/L (41-126); Calcium 8.8 mg/dL (8.7-10.3); Carbon Dioxide 25.9 mmol/L (21.6-31.8); Chloride 102 mmol/L (96-109); Globulin 3.2 g/dL (1.6-3.3); Potassium 3.9 mmol/L (3.5-5.5); Sodium 139 mmol/L (135-145); Total Bilirubin 0.3 mg/dL (0.3-1.2); Total Protein 6.6 g/dL (6.2-8.2); Uric Acid 5.9 mg/dL (2.9-7.7)
--- NOTE | 2023-11-01 11:41 | P.CNOR ---
History of Present Illness - [facility] Consult date: 11/01/23 Requesting physician: Elvi Pascual Consult reason: other (right ankle pain, unable to bear weight) History of present illness: Patient is a 63-year-old female who presented to the hospital at [facility] yesterday with family for evaluation of abnormal labs and right ankle pain for the past 2 days. Patient does have a past medical history significant for Down syndrome, hypothyroidism, gout, gluten times, constipation, osteoporosis Per the ER no patient's family states patient has been doing with pseudogout for the past 2 weeks has been on meloxicam. Family mention that patient stopped the meloxicam because she had elevated creatinine. Orthopedics was consulted due to a right ankle pain and inability to bear weight. According to the nurse, patient does weight-bear as tolerated independently at baseline. Patient was seen this morning in for self lying semirecumbent position. And we was now present during, or, so history was difficult to obtain from patient. Patient mentions she has been having pain for the past several days of the right ankle. Patient denies any recent injuries. She says several years ago she believes she did injure the right ankle. Patient states most the pain is on the outside part of the right ankle. X-rays of the right ankle performed in the ER negative for any fracture or dislocation. Patient denies any other areas of pain. Patient is currently being treated for urinary tract infection. Patient denies chest pain, fever, shortness breath, nausea, vomiting, change in vision, loss of bowel/bladder control. . Past Medical History Past Medical History: Dementia Additional Past Medical History / Comment(s): Down's Syndrome, pseudogout, gluten intolerant, History of Any Multi-Drug Resistant Organisms: MRSA Year Discovered:: 06/02/20 MDRO Source:: FACE Past Surgical History: No Surgical Hx Reported Past Psychological History: No Psychological Hx Reported Smoking Status: Never smoker Past Alcohol Use History: None Reported Past Drug Use History: None Reported Medications and Allergies Home Medications Medication Instructions Recorded Confirmed Type Alendronate Sodium [Fosamax] 70 mg PO MO 10/31/23 10/31/23 History Cyanocobalamin (Vitamin B-12) 1,000 mcg PO DAILY 10/31/23 10/31/23 History [Vitamin B-12] FLUoxetine HCL [Sarafem] 20 mg PO DAILY 10/31/23 10/31/23 History Inulin/Chromium Picolinate [Fiber 2 tab PO DAILY 10/31/23 10/31/23 History Gummies Chew] Allergies Allergy/AdvReac Type Severity Reaction Status Date / Time gluten Allergy Nausea & Verified 10/31/23 13:28 Vomiting Milk Containing Products Allergy Nausea & Verified 10/31/23 13:28 (Dairy) Vomiting [Dairy] Physical Examination Right lateral malleolus just percent was some erythema on exam. Positive for some mild swelling along the right lateral malleolus. Negative for any open wounds or significant ecchymosis. Sensation is equal, symmetric combine checked of the upper and lower extremities on exam. Patient does have some limited range of motion in the right ankle due to pain. Patient is able to flex and extend knees bilaterally. Exam was limited due to patient's stay. Patient is able to wiggle digits of bilateral feet. 4+/5 in all major motor groups in bilateral upper extremities. 4/5 in left lower extremity in all major motor groups. Right lower extremity motor exam limited due to patient's pain in the right ankle. DP pulses palpable bilaterally. Cap refill under 3 seconds in digits of lower extremities. Negative straight leg raise test bilaterally. Negative Homans bilaterally. Results - Labs Labs: Abnormal Lab Results - Last 24 Hours (Table) 10/31/23 10/31/23 10/31/23 Range/Units 11:23 11:23 14:22 RBC (4.10-5.20) X 10*6/uL Lymphocytes # 0.6 L (1.0-4.8) k/uL Sodium 136 L (137-145) mmol/L BUN 25 H (7-17) mg/dL Creatinine 1.21 H (0.52-1.04) mg/dL Glucose 149 H (74-99) mg/dL POC Glucose (mg/dL) (70-110) mg/dL Albumin 3.4 L (3.5-5.0) g/dL Urine Appearance Cloudy H (Clear) Urine Protein Trace H (Negative) Urine Ketones Trace H (Negative) Urine Nitrite Positive H (Negative) Ur Leukocyte Esterase Small H (Negative) Urine WBC 13 H (0-5) /hpf Urine WBC Clumps Few H (None) /hpf Urine Bacteria Many H (None) /hpf Urine Mucus Occasional H (None) /hpf 10/31/23 11/01/23 Range/Units 23:54 05:56 RBC 3.91 L (4.10-5.20) X 10*6/uL Lymphocytes # (1.0-4.8) k/uL Sodium (137-145) mmol/L BUN (7-17) mg/dL Creatinine (0.52-1.04) mg/dL Glucose (74-99) mg/dL POC Glucose (mg/dL) 114 H (70-110) mg/dL Albumin (3.5-5.0) g/dL Urine Appearance (Clear) Urine Protein (Negative) Urine Ketones (Negative) Urine Nitrite (Negative) Ur Leukocyte Esterase (Negative) Urine WBC (0-5) /hpf Urine WBC Clumps (None) /hpf Urine Bacteria (None) /hpf Urine Mucus (None) /hpf H & H 10/31/23 11/01/23 Range/Units 11:23 05:56 Hgb 12.7 12.5 (11.4-16.0) gm/dL Hct 38.8 37.2 (34.0-46.0) % Result Diagrams: 11/01/23 05:56 11/01/23 05:56 - Diagnostic results Ankle/Foot x-ray: report reviewed, image reviewed (X-ray of the right ankle has been reviewed. Negative for any fractures or dislocations. Negative for any significant osteoarthritis) Assessment and Plan Assessment: 1. right ankle pain; stage I pressure ulcer lateral malleolus Plan: 1. right ankle pain; stage I pressure ulcer right lateral malleolus - x-ray of the right ankle is negative for any fracture or dislocation. Erythema present to the right lateral malleolus is likely early stages and ulcer. At this time recommending any orthopedic surgical intervention. We are recommending conservative measures. Pillow was placed under the right ankle to help relieve some of the pressure directly off the right lateral malleolus. PRAFO boots to be placed over right lower extremity. PT/OT evaluation. Weightbearing as tolerated with walker as needed. Pain medication as needed. Patient is stable for orthopedic standpoint for discharge. Orthopedics will be available as needed to see patient. At this time orthopedics is signing off. Please do not hesitate to contact us for any further questions 2. Appreciate medical management 3. Pain management - tylenol 4. DVT prophylaxis recs 5. GI prophylaxis - protonix 6. PT/OT - weightbearing as tolerated with walker and assistance as needed 7. Encourage incentive spirometer use 8. Appreciate consult Time with Patient: Less than 30
[2023-11-01 12:04] LABS: Erythrocyte Sedimentation Rate 93 mm/Hr (0-30)
[2023-11-01 12:11] LABS: Glucose,Whole Blood 93 mg/dL (70-110)
[2023-11-01 17:02] LABS: Glucose,Whole Blood 117 mg/dL (70-110)
[2023-11-01 21:21] LABS: Glucose,Whole Blood 120 mg/dL (70-110)
[2023-11-02] MEDS: ACETAMINOPHEN TAB 325 MG TAB PO PRN (01:13)
[2023-11-02 05:54] LABS: Glucose,Whole Blood 95 mg/dL (70-110)
[2023-11-02 07:00] LABS: Glucose,Whole Blood 98 mg/dL (70-110)
--- NOTE | 2023-11-02 07:29 | P.PN ---
Subjective Progress Note Date: 11/01/23 HISTORY OF PRESENT ILLNESS: 63-year-old With active medical history of Down syndrome, hypothyroidism, gout, gluten intolerance, chronic constipation, osteoporosis and depression who has not been in the hospital long time with no comorbidity of any type except for parkinsonism brought to the emergency department by family today for evaluation because of significant altered mental status with worsening confusion than normal for the last 2 days also has been dealing with worsening pain and discomfort in the right ankle area not been able to walk she had dealt with gout and pseudogout in the past and was seeing orthopedic earlier she has been taking meloxicam for arthritis. Also family had reported slight hallucination for the last 2 days patient is having incontinence she is not able to make it to the bathroom because of her foot pain not been able to put any weight on the right ankle. Was evaluated in the emergency department CAT scan of the brain showed m ild atrophy with no intracranial hemorrhage or abnormality. X-ray of the ankle area showed no acute fracture or dislocation. Chest x-ray correlate with mild interstitial edema EKG showed sinus bradycardia with pulse rate 59 bpm. Laboratory values surprisingly showed acute kidney injury with creatinine of 1.1 bun 25 GFR of 49 with blood sugar of 149 as well. White blood cell was 8.6 with hemoglobin 12.7 hematocrit 38.8 proBNP was 694 ammonia level less than 9 UA showed many bacteria with few WBC clumps some RBC and positive for nitrates. COVID influenza and RSV were negative. She was giving 2 g of Rocephin IV for UTI continue anti-inflammatory admitted to the hospital will be seeing ort jihanc for her ankle pain. 11/01/2023: Patient is resting comfortably in bed still have significant confusion slight change still debilitated not been able to ambulate and walk. I had long discussion with the father and her stepmother who apparently has been having major challenge with Queta not able to put any pressure on her weight on the foot which is probably already created all this problem in the first place which according to the stepmom started having a lot worsening incontinence not making to the bathroom in time and soiling herself creating more problems he khanna led into the urinary tract infection. The claimed that she had pseudogout was treated previously with meloxicam backing off medication because of the decline in kidney function which had caused the patient to be a little bit more discomfort that probably led into having problems. Asking currently to wait and see for assessment of Ortho if patient has any element require any further attention or if she is able to put pressure on weight on it with physical therapy. The most difficult part has been communication with Queta and having to comprehends her complaint in full and her reaction. Will await and do physical therapy make sure that she is able to ambulate and walk on her own or at least with a walker initially. As for the urinary tract infection should be an easy treat continue Salvador currently awaiting for culture and this is probably E. coli will be easy to manage as an outpatient when she is ready to leave the hospital. REVIEW OF SYSTEMS: CONSTITUTIONAL: Mildly overweight Down syndrome in no acute respiratory distress. EYES: No icterus sclerae, no conjunctivitis. EARS, NOSE, MOUTH, THROAT, and FACE: No sore throat, lymphadenopathy, carotid bruits or deformity. RESPIRATORY: No SOB cough or wheezes. CARDIOVASCULAR: No CP, Palpitation, PND, Orthopnea, or angina. GASTROINTESTINAL: No Abd pain, Nausea or vomiting, no Diarrhea or constipation, No GI Bleed, no distention or masses. GENITOURINARY: Negative for Hematuria or UTI, no kidney stones. INTEGUMENT/BREAST: Negative for any muscular injury with mild osteoarthritis.. HEMATOLOGIC/LYMPHATIC: Negative for bleed or purpura. MUSCULOSKELTAL: Negative for Myalgia or arthralgia. Significant pain and discomfort in the right ankle area. NEURLOGICAL: No LOC, Sz or syncope, blurred vision dizziness or abnormality.. BEHAVIORAL/PSYCH: Negative. ENDOCRINE: Negative. PHYSICAL EXAMINATION: General Appearance: Alert, confused, no distress, appears stated age. Neck HEENT: Supple, no lymphadenopathy, no thyroid enlargement, no carotid bruits. Lungs: Clear to auscultation without crackles or wheezes no rhonchi, no deformity. Chest Wall: Decreased expansion with deep inspiration no tenderness and no deformity was found on exam, no costochondral pain or discomfort. Heart: Regular rate and rhythm, S1, S2 normal, no murmur, rub or gallop. Back: Symmetric, no curvature, ROM normal, no CVA tenderness. Abdomen: Soft, non-tender, bowel sounds active all four quadrants, no masses, no organomegaly. Slight discomfort in the lower abdominal region area. Extremities: Extremities normal, atraumatic, no cyanosis or edema. Right ankle has slight swelling and discomfort but any movement slightly with warm but not hot no sign of infection. Pulses: 2+ and symmetric. Skin: Skin color, texture, tugor normal, no rashes or lesions. Neurologic: Alert oriented confused cranial nerves II through XII intact, no motor deficit. ASSESSMENT AND PLAN: _Altered mental status: Was caused by the severity of her ankle and foot pain discomfort and injury so far there is no sign of fracture we will continue to treat her UTI as well. _UTI no sign of sepsis: Will continue Rocephin 1 g daily switch patient to oral Ceftin with waiting for the final culture. _Acute kidney injury: Much better so far on hydration continue hydration watch kidney function carefully also continue to watch urine output. _Debility: Not been able to ambulate and walk because by the severity of her ankle pain and discomfort refusing to put any pressure on the knee which led her to having more incontinence and led into the UTI in the first place. Will advance PT OT while were sensitive to her need, along with condition and complaint. _Ankle pain: Mostly pseudogout with no sign of injury, waiting for Ortho consultation with patient was started on colchicine and might add smaller dose of steroid. _Hyperglycemia: Would not show diagnosis of diabetes, A1c done with lab Accu- Chek with sliding scale coverage. _Cognitive decline: With Down syndrome at age 63 with finding on her brain CAT scan consistent with atrophy. Whether using donepezil or rivastigmine is help ful or not at this point not clear. _GI prophylaxis: Patient be on pantoprazole 40 mg daily. Discussion: Long discussion with the family including the father and stepmom their major concern is her safety and mobility I am not been able to walk to the bathroom onto the commode made it very difficult for him to care for her last few days at home they are asking if he can do more physical therapy just to provide with little extra help to make sure she is going to be able to walk with a walker with minimum help by herself at least to be able to use the bathroom. Request is very regimen at this point we will continue to watch patient carefully while she is treated for her UTI along waiting for Ortho consultation and final recommendation and will advance physical therapy is much as possible. Objective - Vital Signs Vital signs: Vital Signs Temp 99.2 F 10/31/23 17:26 Pulse 52 L 11/01/23 04:24 Resp 18 11/01/23 04:24 BP 130/70 11/01/23 04:24 Pulse Ox 100 11/01/23 04:24 FiO2 Intake & Output 10/31/23 10/31/23 11/01/23 06:59 18:59 06:59 Weight 49.895 kg 49.895 kg - Labs CBC & Chem 7: 11/01/23 05:56 11/01/23 05:56 Labs: Abnormal Lab Results - Last 24 Hours (Table) 10/31/23 10/31/23 10/31/23 Range/Units 11:23 11:23 14:22 Lymphocytes # 0.6 L (1.0-4.8) k/uL Sodium 136 L (137-145) mmol/L BUN 25 H (7-17) mg/dL Creatinine 1.21 H (0.52-1.04) mg/dL Glucose 149 H (74-99) mg/dL POC Glucose (mg/dL) (70-110) mg/dL Albumin 3.4 L (3.5-5.0) g/dL Urine Appearance Cloudy H (Clear) Urine Protein Trace H (Negative) Urine Ketones Trace H (Negative) Urine Nitrite Positive H (Negative) Ur Leukocyte Esterase Small H (Negative) Urine WBC 13 H (0-5) /hpf Urine WBC Clumps Few H (None) /hpf Urine Bacteria Many H (None) /hpf Urine Mucus Occasional H (None) /hpf 10/31/23 Range/Units 23:54 Lymphocytes # (1.0-4.8) k/uL Sodium (137-145) mmol/L BUN (7-17) mg/dL Creatinine (0.52-1.04) mg/dL Glucose (74-99) mg/dL POC Glucose (mg/dL) 114 H (70-110) mg/dL Albumin (3.5-5.0) g/dL Urine Appearance (Clear) Urine Protein (Negative) Urine Ketones (Negative) Urine Nitrite (Negative) Ur Leukocyte Esterase (Negative) Urine WBC (0-5) /hpf Urine WBC Clumps (None) /hpf Urine Bacteria (None) /hpf Urine Mucus (None) /hpf
--- NOTE | 2023-11-02 15:14 | P.PN ---
Subjective Progress Note Date: 11/02/23 HISTORY OF PRESENT ILLNESS: 63-year-old With active medical history of Down syndrome, hypothyroidism, gout, gluten intolerance, chronic constipation, osteoporosis and depression who has not been in the hospital long time with no comorbidity of any type except for parkinsonism brought to the emergency department by family today for evaluation because of significant altered mental status with worsening confusion than normal for the last 2 days also has been dealing with worsening pain and discomfort in the right ankle area not been able to walk she had dealt with gout and pseudogout in the past and was seeing orthopedic earlier she has been taking meloxicam for arthritis. Also family had reported slight hallucination for the last 2 days patient is having incontinence she is not able to make it to the bathroom because of her foot pain not been able to put any weight on the right ankle. Was evaluated in the emergency department CAT scan of the brain showed m ild atrophy with no intracranial hemorrhage or abnormality. X-ray of the ankle area showed no acute fracture or dislocation. Chest x-ray correlate with mild interstitial edema EKG showed sinus bradycardia with pulse rate 59 bpm. Laboratory values surprisingly showed acute kidney injury with creatinine of 1.1 bun 25 GFR of 49 with blood sugar of 149 as well. White blood cell was 8.6 with hemoglobin 12.7 hematocrit 38.8 proBNP was 694 ammonia level less than 9 UA showed many bacteria with few WBC clumps some RBC and positive for nitrates. COVID influenza and RSV were negative. She was giving 2 g of Rocephin IV for UTI continue anti-inflammatory admitted to the hospital will be seeing ort jihanc for her ankle pain. 11/01/2023: Patient is resting comfortably in bed still have significant confusion slight change still debilitated not been able to ambulate and walk. I had long discussion with the father and her stepmother who apparently has been having major challenge with Queta not able to put any pressure on her weight on the foot which is probably already created all this problem in the first place which according to the stepmom started having a lot worsening incontinence not making to the bathroom in time and soiling herself creating more problems he khanna led into the urinary tract infection. The claimed that she had pseudogout was treated previously with meloxicam backing off medication because of the decline in kidney function which had caused the patient to be a little bit more discomfort that probably led into having problems. Asking currently to wait and see for assessment of Ortho if patient has any element require any further attention or if she is able to put pressure on weight on it with physical therapy. The most difficult part has been communication with Queta and having to comprehends her complaint in full and her reaction. Will await and do physical therapy make sure that she is able to ambulate and walk on her own or at least with a walker initially. As for the urinary tract infection should be an easy treat continue [place] currently awaiting for culture and this is probably E. coli will be easy to manage as an outpatient when she is ready to leave the hospital. 11/02/2023: She is resting comfortably still having problem when putting any pressure weight on the foot still refused to put any weight on it currently. Physical therapy has not been in yet so far and family concern at this point that with her current condition not been able to put pressure on the foot with her more confused status and not able to care for her daily spoke apparently with the case management social worker on Saturday with the possibility of option of assisted living or other programs. In the meanwhile continue to try with bladder retraining and bowel training to respond to patient fast enough but even when dry patient already had incontinence because she is worried about putting pressure on her foot still complaining of pain. No urine culture is finalized yet but preliminary showing gram-negative bacilli which is most likely E. coli in the antibiotic management currently Rocephin is the right management continue to treat infection, continue to care for patient, continue to advance therapy and mobility gradually and hopefully patient will improve. REVIEW OF SYSTEMS: CONSTITUTIONAL: Mildly overweight Down syndrome in no acute respiratory distress. EYES: No icterus sclerae, no conjunctivitis. EARS, NOSE, MOUTH, THROAT, and FACE: No sore throat, lymphadenopathy, carotid bruits or deformity. RESPIRATORY: No SOB cough or wheezes. CARDIOVASCULAR: No CP, Palpitation, PND, Orthopnea, or angina. GASTROINTESTINAL: No Abd pain, Nausea or vomiting, no Diarrhea or constipation, No GI Bleed, no distention or masses. GENITOURINARY: Negative for Hematuria or UTI, no kidney stones. INTEGUMENT/BREAST: Negative for any muscular injury with mild osteoarthritis.. HEMATOLOGIC/LYMPHATIC: Negative for bleed or purpura. MUSCULOSKELTAL: Negative for Myalgia or arthralgia. Significant pain and discomfort in the right ankle area. NEURLOGICAL: No LOC, Sz or syncope, blurred vision dizziness or abnormality.. BEHAVIORAL/PSYCH: Negative. ENDOCRINE: Negative. PHYSICAL EXAMINATION: General Appearance: Alert, confused, no distress, appears stated age. Neck HEENT: Supple, no lymphadenopathy, no thyroid enlargement, no carotid bruits. Lungs: Clear to auscultation without crackles or wheezes no rhonchi, no deformity. Chest Wall: Decreased expansion with deep inspiration no tenderness and no def ormity was found on exam, no costochondral pain or discomfort. Heart: Regular rate and rhythm, S1, S2 normal, no murmur, rub or gallop. Back: Symmetric, no curvature, ROM normal, no CVA tenderness. Abdomen: Soft, non-tender, bowel sounds active all four quadrants, no masses, no organomegaly. Slight discomfort in the lower abdominal region area. Extremities: Extremities normal, atraumatic, no cyanosis or edema. Right ankle has slight swelling and discomfort but any movement slightly with warm but not hot no sign of infection. Pulses: 2+ and symmetric. Skin: Skin color, texture, tugor normal, no rashes or lesions. Neurologic: Alert oriented confused cranial nerves II through XII intact, no m otor deficit. ASSESSMENT AND PLAN: _Altered mental status: Caused by urinary tract infection, dehydration, acute kidney injury and probably her ankle pain and injury not been able to bear partial weight on it. _UTI no sign of sepsis: Given his gram-negative bacilli she is most likely E. coli, continue treatment with Rocephin currently. _Acute kidney injury: Much better so far on hydration continue hydration watch kidney function carefully also continue to watch urine output. Kidney function is improved. _Debility: Not been able to ambulate and walk because by the severity of her ankle pain and discomfort refusing to put any pressure on the knee which led her to having more incontinence and led into the UTI in the first place. Will advance PT OT while were sensitive to her need, along with condition and complaint. _Ankle pain: Mostly pseudogout with no sign of injury, no sign of fracture, waiting for Ortho consultation with patient was started on colchicine and might add smaller dose of steroid. _Hyperglycemia: Would not show diagnosis of diabetes, A1c done with lab Accu- Chek with sliding scale coverage. Blood sugar become fairly normal will DC Ac cu-Chek. _Cognitive decline: With Down syndrome at age 63 with finding on her brain CAT scan consistent with atrophy. Whether using donepezil or rivastigmine is helpful or not at this point not clear. _GI prophylaxis: Patient be on pantoprazole 40 mg daily. Discussion: Start PT OT if advancing patient hopefully can go home otherwise possibility of going to SNF in [facility] like [facility] or assisted living would be a good idea. Objective - Vital Signs Vital signs: Vital Signs Temp 97.9 F 11/02/23 02:00 Pulse 47 L 11/02/23 02:00 Resp 18 11/02/23 02:00 BP 113/65 11/02/23 02:00 Pulse Ox 97 11/02/23 02:00 FiO2 Intake & Output 11/01/23 11/02/23 11/02/23 18:59 06:59 18:59 Intake Total 240 Balance 240 Intake: Oral 240 Other: Voiding Method Diaper Diaper Incontinent Incontinent # Voids 1 1 - Labs CBC & Chem 7: 11/01/23 05:56 11/01/23 05:56 Labs: Abnormal Lab Results - Last 24 Hours (Table) 11/01/23 11/01/23 11/01/23 Range/Units 05:56 05:56 17:00 RBC 3.91 L (4.10-5.20) X 10*6/uL ESR 93 H (0-30) mm/Hr Est GFR (CKD-EPI) 57 L (>=60) POC Glucose (mg/dL) 117 H (70-110) mg/dL Albumin 3.4 L (3.8-4.9) g/dL Albumin/Globulin Ratio 1.06 L (1.60-3.17) Ratio 11/01/23 Range/Units 21:20 RBC (4.10-5.20) X 10*6/uL ESR (0-30) mm/Hr Est GFR (CKD-EPI) (>=60) POC Glucose (mg/dL) 120 H (70-110) mg/dL Albumin (3.8-4.9) g/dL Albumin/Globulin Ratio (1.60-3.17) Ratio
--- NOTE | 2023-11-03 10:50 | P.PN ---
Subjective Progress Note Date: 11/03/23 HISTORY OF PRESENT ILLNESS: 63-year-old With active medical history of Down syndrome, hypothyroidism, gout, gluten intolerance, chronic constipation, osteoporosis and depression who has not been in the hospital long time with no comorbidity of any type except for parkinsonism brought to the emergency department by family today for evaluation because of significant altered mental status with worsening confusion than normal for the last 2 days also has been dealing with worsening pain and discomfort in the right ankle area not been able to walk she had dealt with gout and pseudogout in the past and was seeing orthopedic earlier she has been taking meloxicam for arthritis. Also family had reported slight hallucination for the last 2 days patient is having incontinence she is not able to make it to the bathroom because of her foot pain not been able to put any weight on the right ankle. Was evaluated in the emergency department CAT scan of the brain showed m ild atrophy with no intracranial hemorrhage or abnormality. X-ray of the ankle area showed no acute fracture or dislocation. Chest x-ray correlate with mild interstitial edema EKG showed sinus bradycardia with pulse rate 59 bpm. Laboratory values surprisingly showed acute kidney injury with creatinine of 1.1 bun 25 GFR of 49 with blood sugar of 149 as well. White blood cell was 8.6 with hemoglobin 12.7 hematocrit 38.8 proBNP was 694 ammonia level less than 9 UA showed many bacteria with few WBC clumps some RBC and positive for nitrates. COVID influenza and RSV were negative. She was giving 2 g of Rocephin IV for UTI continue anti-inflammatory admitted to the hospital will be seeing ort jihanc for her ankle pain. 11/01/2023: Patient is resting comfortably in bed still have significant confusion slight change still debilitated not been able to ambulate and walk. I had long discussion with the father and her stepmother who apparently has been having major challenge with Queta not able to put any pressure on her weight on the foot which is probably already created all this problem in the first place which according to the stepmom started having a lot worsening incontinence not making to the bathroom in time and soiling herself creating more problems he khanna led into the urinary tract infection. The claimed that she had pseudogout was treated previously with meloxicam backing off medication because of the decline in kidney function which had caused the patient to be a little bit more discomfort that probably led into having problems. Asking currently to wait and see for assessment of Ortho if patient has any element require any further attention or if she is able to put pressure on weight on it with physical therapy. The most difficult part has been communication with Queta and having to comprehends her complaint in full and her reaction. Will await and do physical therapy make sure that she is able to ambulate and walk on her own or at least with a walker initially. As for the urinary tract infection should be an easy treat continue Rocephin currently awaiting for culture and this is probably E. coli will be easy to manage as an outpatient when she is ready to leave the hospital. 11/02/2023: She is resting comfortably still having problem when putting any pressure weight on the foot still refused to put any weight on it currently. Physical therapy has not been in yet so far and family concern at this point that with her current condition not been able to put pressure on the foot with her more confused status and not able to care for her daily spoke apparently with the social security specialist on Saturday with the possibility of option of assisted living or other programs. In the meanwhile continue to try with bladder retraining and bowel training to respond to patient fast enough but even when dry patient already had incontinence because she is worried about putting pressure on her foot still complaining of pain. No urine culture is finalized yet but preliminary showing gram-negative bacilli which is most likely E. coli in the antibiotic management currently Rocephin is the right management continue to treat infection, continue to care for patient, continue to advance therapy and mobility gradually and hopefully patient will improve. 11/03/2023: She is resting comfortably she slept all night family has not been in yet today she is diagnosed with gram-negative bacilli UTI her foot and ankle is doing much better so far was able to put weight and moved to the bathroom with the aid with minimal help using a walker. She is not having any incontinence to stool risks kept on colchicine last 2 days will switch her probably to once a day start today by tomorrow might be on meloxicam for arthritis to providing walk with a walker with help. Was not evaluated by physical therapy at not clear why and also social security specialist still putting an effort with the family to see if at this point she would benefit from going to assisted living or different planning will be an option. Family apparently are not able to manage with going on with her if she cannot be ambulating with minimal help. She took her IV out through the night she will be due for 1 g of Rocephin this morning we will switch her to either cephalexin p.o. Or Ceftin. REVIEW OF SYSTEMS: CONSTITUTIONAL: Mildly overweight Down syndrome in no acute respiratory distress. EYES: No icterus sclerae, no conjunctivitis. EARS, NOSE, MOUTH, THROAT, and FACE: No sore throat, lymphadenopathy, carotid bruits or deformity. RESPIRATORY: No SOB cough or wheezes. CARDIOVASCULAR: No CP, Palpitation, PND, Orthopnea, or angina. GASTROINTESTINAL: No Abd pain, Nausea or vomiting, no Diarrhea or constipation, No GI Bleed, no distention or masses. GENITOURINARY: Negative for Hematuria or UTI, no kidney stones. INTEGUMENT/BREAST: Negative for any muscular injury with mild osteoarthritis.. HEMATOLOGIC/LYMPHATIC: Negative for bleed or purpura. MUSCULOSKELTAL: Negative for Myalgia or arthralgia. Significant pain and discomfort in the right ankle area. NEURLOGICAL: No LOC, Sz or syncope, blurred vision dizziness or abnormality.. BEHAVIORAL/PSYCH: Negative. ENDOCRINE: Negative. PHYSICAL EXAMINATION: General Appearance: Alert, confused, no distress, appears stated age. Neck HEENT: Supple, no lymphadenopathy, no thyroid enlargement, no carotid bruits. Lungs: Clear to auscultation without crackles or wheezes no rhonchi, no deformity. Chest Wall: Decreased expansion with deep inspiration no tenderness and no deformity was found on exam, no costochondral pain or discomfort. Heart: Regular rate and rhythm, S1, S2 normal, no murmur, rub or gallop. Back: Symmetric, no curvature, ROM normal, no CVA tenderness. Abdomen: Soft, non-tender, bowel sounds active all four quadrants, no masses, no organomegaly. Slight discomfort in the lower abdominal region area. Extremities: Extremities normal, atraumatic, no cyanosis or edema. Right ankle has slight swelling and discomfort but any movement slightly with warm but not hot no sign of infection. Pulses: 2+ and symmetric. Skin: Skin color, texture, tugor normal, no rashes or lesions. Neurologic: Alert oriented confused cranial nerves II through XII intact, no motor deficit. ASSESSMENT AND PLAN: _Altered mental status: Caused by urinary tract infection, dehydration, acute kidney injury and probably her ankle pain and injury not been able to bear partial weight on it. So far slight improvement but not quite sure if this is her baseline or not. _UTI no sign of sepsis: Given his gram-negative bacilli she is most likely E. coli, her IV is out we will switch her to cephalexin oral till final culture is back. _Acute kidney injury: DC IV hydration continue oral kidney function is back to his baseline. _Debility: Not been able to ambulate and walk because by the severity of her ankle pain and discomfort refusing to put any pressure on the knee which led her to having more incontinence and led into the UTI in the first place. Will advance PT OT patient to ambulate and walk with a walker with slight accountant assistant. _Ankle pain: Mostly pseudogout with no sign of injury, no sign of fracture, Ortho consultation did not add much, uric acid was negative patient still on colchicine we will switch to meloxicam by tomorrow. _Hyperglycemia: Accu-Chek has been normal will DC Accu-Chek continue diet control. _Cognitive decline: With Down syndrome at age 63 with finding on her brain CAT scan consistent with atrophy. Whether using donepezil or rivastigmine is helpful or not at this point not clear. _GI prophylaxis: Patient be on pantoprazole 40 mg daily. Discussion: Continue to ambulate with help with a walker, continue treatment for UTI and pseudogout still waiting for assessment by PT OT and with the help of social security specialist for possibility and potential for placement. Objective - Vital Signs Vital signs: Vital Signs Temp 97.5 F L 11/03/23 08:05 Pulse 55 L 11/03/23 08:05 Resp 16 11/03/23 08:05 BP 123/66 11/03/23 08:05 Pulse Ox 99 11/03/23 08:05 FiO2 Intake & Output 11/02/23 11/03/23 11/03/23 18:59 06:59 18:59 Intake Total 240 Balance 240 Intake: Oral 240 Other: Voiding Method Incontinent Diaper Diaper Incontinent Incontinent # Voids 2 1 # Bowel Movements 2 1 1 - Labs CBC & Chem 7: 11/01/23 05:56 11/01/23 05:56 Labs: Microbiology - Last 24 Hours (Table) 11/01/23 05:56 Blood Culture - Preliminary Blood 10/31/23 14:22 Urine Culture - Preliminary Urine,Voided Gram Neg Bacilli
[2023-11-03] MEDS: CEPHALEXIN 500 MG CAP PO SCH (11:49)
[2023-11-03 11:55] LABS: Glucose,Whole Blood 111 mg/dL (70-110)
[2023-11-04 14:57] VITALS: BP 82/57; PULSE 58; RESP 16; TEMP 98.2
--- NOTE | 2023-11-06 06:28 | P.DS ---
Providers Date of admission: 10/31/23 17:02 Attending physician: Lane Cat Consults: 10/31/23 16:30 Consult Physician Routine Consulting Provider: Marco Birmingham Consult Reason/Comments: right ankle pain, unable to bear weight Do you want consulting provider notified?: Yes Primary care physician: Lane Cat [facility] Course: HISTORY OF PRESENT ILLNESS: 63-year-old With active medical history of Down syndrome, hypothyroidism, gout, gluten intolerance, chronic constipation, osteoporosis and depression who has not been in the hospital long time with no comorbidity of any type except for parkinsonism brought to the emergency department by family today for evaluation because of significant altered mental status with worsening confusion than normal for the last 2 days also has been dealing with worsening pain and discomfort in the right ankle area not been able to walk she had dealt with gout and pseudogout in the past and was seeing orthopedic earlier she has been taking meloxicam for arthritis. Also family had reported slight hallucination for the last 2 days patient is having incontinence she is not able to make it to the bathroom because of her foot pain not been able to put any weight on the right ankle. Was evaluated in the emergency department CAT scan of the brain showed mild atrophy with no intracranial hemorrhage or abnormality. X-ray of the ankle area showed no acute fracture or dislocation. Chest x-ray correlate with mild interstitial edema EKG showed sinus bradycardia with pulse rate 59 bpm. Laboratory values surprisingly showed acute kidney injury with creatinine of 1.1 bun 25 GFR of 49 with blood sugar of 149 as well. White blood cell was 8.6 with hemoglobin 12.7 hematocrit 38.8 proBNP was 694 ammonia level less than 9 UA showed many bacteria with few WBC clumps some RBC and positive for nitrates. COVID influenza and RSV were negative. She was giving 2 g of Rocephin IV for UTI continue anti-inflammatory admitted to the hospital will be seeing orthopedic for her ankle pain. 11/01/2023: Patient is resting comfortably in bed still have significant confusion slight change still debilitated not been able to ambulate and walk. I had long discussion with the father and her stepmother who apparently has been having major challenge with Queta not able to put any pressure on her weight on the foot which is probably already created all this problem in the first place which according to the stepmom started having a lot worsening incontinence not making to the bathroom in time and soiling herself creating more problems probably led into the urinary tract infection. The claimed that she had pseudogout was treated previously with meloxicam backing off medication because of the decline in kidney function which had caused the patient to be a little bit more discomfort that probably led into having problems. Asking currently to wait and see for assessment of Ortho if patient has any element require any further attention or if she is able to put pressure on weight on it with physical therapy. The most difficult part has been communication with Queta and having to comprehends her complaint in full and her reaction. Will await and do physical therapy make sure that she is able to ambulate and walk on her own or at least with a walker initially. As for the urinary tract infection should be an easy treat continue Rocephin currently awaiting for culture and this is probably E. coli will be easy to manage as an outpatient when she is ready to leave the hospital. 11/02/2023: She is resting comfortably still having problem when putting any pressure weight on the foot still refused to put any weight on it currently. Physical therapy has not been in yet so far and family concern at this point that with her current condition not been able to put pressure on the foot with her more confused status and not able to care for her daily spoke apparently with the social work coordinator on Saturday with the possibility of option of assisted living or other programs. In the meanwhile continue to try with bladder retraining and bowel training to respond to patient fast enough but even when dry patient already had incontinence because she is worried about putting pressure on her foot still complaining of pain. No urine culture is finalized yet but preliminary showing gram-negative bacilli which is most likely E. coli in the antibiotic management currently Rocephin is the right management continue to treat infection, continue to care for patient, continue to advance therapy and mobility gradually and hopefully patient will improve. 11/03/2023: She is resting comfortably she slept all night family has not been in yet today she is diagnosed with gram-negative bacilli UTI her foot and ankle is doing much better so far was able to put weight and moved to the bathroom with the aid with minimal help using a walker. She is not having any incontinence to stool risks kept on colchicine last 2 days will switch her probably to once a day start today by tomorrow might be on meloxicam for arthritis to providing walk with a walker with help. Was not evaluated by physical therapy at not clear why and also social work coordinator still putting an effort with the family to see if at this point she would benefit from going to assisted living or different planning will be an option. Family apparently are not able to manage with going on with her if she cannot be ambulating with minimal help. She took her IV out through the night she will be due for 1 g of Rocephin this morning we will switch her to either cephalexin p.o. Or Ceftin. 11/04/2023: Patient is feeling slightly better continue to be Comprehensive noncommunicative and not verbal, with help and encouragement was able to put pressure on the foot and ambulate at least to commode. Absolutely refused to do any physical therapy or to comply with any order to help her to walk with a walker. But with the help of nurse and aide was able to use a walker cautiously. She is responding very well to antibiotic which should be switched to oral Ceftin at this point to complete a few more days for UTI. She developed to have an episode of diarrhea from colchicine which was finally held and patient eventually will be switched to meloxicam for arthritis of the foot does not require to stay on colchicine any longer. Overall she is stable medically addressed with the family regarding they want to do any placement and apparently developed father with stepmom decided to take patient home with extra help at this point. Patient be discharged home today 11/04/2023. REVIEW OF SYSTEMS: CONSTITUTIONAL: Mildly overweight Down syndrome in no acute respiratory distress. EYES: No icterus sclerae, no conjunctivitis. EARS, NOSE, MOUTH, THROAT, and FACE: No sore throat, lymphadenopathy, carotid bruits or deformity. RESPIRATORY: No SOB cough or wheezes. CARDIOVASCULAR: No CP, Palpitation, PND, Orthopnea, or angina. GASTROINTESTINAL: No Abd pain, Nausea or vomiting, no Diarrhea or constipation, No GI Bleed, no distention or masses. GENITOURINARY: Negative for Hematuria or UTI, no kidney stones. INTEGUMENT/BREAST: Negative for any muscular injury with mild osteoarthritis.. HEMATOLOGIC/LYMPHATIC: Negative for bleed or purpura. MUSCULOSKELTAL: Negative for Myalgia or arthralgia. Significant pain and discomfort in the right ankle area. NEURLOGICAL: No LOC, Sz or syncope, blurred vision dizziness or abnormality.. BEHAVIORAL/PSYCH: Negative. ENDOCRINE: Negative. PHYSICAL EXAMINATION: General Appearance: Alert, confused, no distress, appears stated age. Neck HEENT: Supple, no lymphadenopathy, no thyroid enlargement, no carotid bruits. Lungs: Clear to auscultation without crackles or wheezes no rhonchi, no deformity. Chest Wall: Decreased expansion with deep inspiration no tenderness and no deformity was found on exam, no costochondral pain or discomfort. Heart: Regular rate and rhythm, S1, S2 normal, no murmur, rub or gallop. Back: Symmetric, no curvature, ROM normal, no CVA tenderness. Abdomen: Soft, non-tender, bowel sounds active all four quadrants, no masses, no organomegaly. Slight discomfort in the lower abdominal region area. Extremities: Extremities normal, atraumatic, no cyanosis or edema. Right ankle has slight swelling and discomfort but any movement slightly with warm but not hot no sign of infection. Pulses: 2+ and symmetric. Skin: Skin color, texture, tugor normal, no rashes or lesions. Neurologic: Alert oriented confused cranial nerves II through XII intact, no motor deficit. ASSESSMENT AND PLAN: _Altered mental status: Caused by urinary tract infection, dehydration, acute kidney injury and probably her ankle pain and injury not been able to bear partial weight on it. So far slight improvement but not quite sure if this is her baseline or not. _UTI no sign of sepsis: Given his gram-negative bacilli she is most likely E. coli, her IV is out we will switch her to cephalexin oral till final culture is back. _Acute kidney injury: DC IV hydration continue oral kidney function is back to his baseline. _Debility: Not been able to ambulate and walk because by the severity of her ankle pain and discomfort refusing to put any pressure on the knee which led her to having more incontinence and led into the UTI in the first place. Will advance PT OT patient to ambulate and walk with a walker with slight assistant manager pt. _Ankle pain: Mostly pseudogout with no sign of injury, no sign of fracture, Ortho consultation did not add much, uric acid was negative patient still on colchicine we will switch to meloxicam by tomorrow. _Hyperglycemia: Accu-Chek has been normal will DC Accu-Chek continue diet con trol. _Cognitive decline: With Down syndrome at age 63 with finding on her brain CAT scan consistent with atrophy. Whether using donepezil or rivastigmine is helpful or not at this point not clear. _GI prophylaxis: Patient be on pantoprazole 40 mg daily. Discussion: Continue to ambulate with a walker with the help mostly but refused physical therapy and family are agreeable to take her home. Hospital course: Admitted to the hospital on 10/31/2023 withSignificant change in mental status hallucination and more delusional with severe incontinence noncontrol and severe pain of the right ankle not being able to put any pressure weight on it. At the time presented to the emergency department CAT scan of the brain shows no hemorrhage x-ray of the ankle did not show any fracture or dislocation chest x- ray correlate with mild interstitial edema EKG showed bradycardia laboratory value shows creatinine of 1.1 with acute kidney injury blood sugars mild elev ated only white blood cell 8.6 with normal hemoglobin hematocrit proBNP was 694 only. Patient was started on 1 g of Rocephin for UTI and consult orthopedic for possible ankle injury or more inflammation at the time. She is known to have pseudogout in the past I initiate colchicine 0.6 mg twice a day after the second day she developed to have slight diarrhea. She was evaluated by orthopedic and found no fracture or any concerns requiring intervention. Patient still refused to walk or put pressure on the foot at this point and the father and the stepmom absolutely refused to take her home currently feeling she is not safe to be home with them. Consult PT to help patient to walk and ambulate and see her potential and with patient's current mental status she absolutely refused to put any effort with their help whatsoever. After the second day she started ambulating slightly with the help of the aide to walk to the bathroom [id number] was able to remove to the commode safely with garcia pervision. Addressed with the family again the current circumstances and with the expectation at that point they are thinking about placement therapy as well waiting to see and talk to the social work coordinator about the option on Saturday. Patient was evaluated again by physical therapy on Saturday and refused to walk without help and supervision but was able to ambulate to the commode and to the bathroom with minimal help. Family at this point will slightly take her home not to do any placement therapy they will hire special help. The patient was safe to be discharged home today 11/04/2023. Time spent on discharging the patient was over 34 minutes. Patient Condition at Discharge: Stable Plan - Discharge Summary New Discharge Prescriptions: New Cefuroxime [Ceftin] 250 mg PO BID 3 Days #6 tab Pantoprazole [Protonix] 40 mg PO AC-BRKFST #30 tab Continue Inulin/Chromium Picolinate [Fiber Gummies Chew] 2 tab PO DAILY FLUoxetine HCL [Sarafem] 20 mg PO DAILY Alendronate Sodium [Fosamax] 70 mg PO MO Cyanocobalamin (Vitamin B-12) [Vitamin B-12] 1,000 mcg PO DAILY Discharge Medication List Alendronate Sodium [Fosamax] 70 mg PO MO 10/31/23 [History] Cyanocobalamin (Vitamin B-12) [Vitamin B-12] 1,000 mcg PO DAILY 10/31/23 [History] FLUoxetine HCL [Sarafem] 20 mg PO DAILY 10/31/23 [History] Inulin/Chromium Picolinate [Fiber Gummies Chew] 2 tab PO DAILY 10/31/23 [History] Cefuroxime [Ceftin] 250 mg PO BID 3 Days #6 tab 11/04/23 [Rx] Pantoprazole [Protonix] 40 mg PO AC-BRKFST #30 tab 11/04/23 [Rx] Follow up Appointment(s)/Referral(s): Lane Cat MD [Primary Care Provider] - 11/06/23 11:00 am [facility], [NON-STAFF] - 1 Week ([facility] will call you to arrange a visit) Patient Instructions/Handouts: Urinary Tract Infection in Women (DC) Activity/Diet/Wound Care/Special Instructions: Patient requires a bedside commode because they are room confined due to ankle pain with stage stage 1 pressure ulcer. Discharge Disposition: HOME WITH HOME HEALTH SERVICES
== END 2023-11-04 19:01 | disposition home health service (06) ==
LOC: EC 09:53 → 6NMEDSUR 17:02 → 5NMEDONC 11-01 00:32 → 4SSUR 11-01 04:25
PROVIDERS: ADMIT Internal Medicine Geriatric Medicine; ATTEND Internal Medicine Geriatric Medicine
DX: M79.671 Pain in right foot (principal); E86.0 Dehydration; F03.92 Unspecified dementia, unspecified severity, with psychotic disturbance; F10.20 Alcohol dependence, uncomplicated; I10 Essential (primary) hypertension; E03.9 Hypothyroidism, unspecified; N39.0 Urinary tract infection, site not specified; N17.0 Acute kidney failure with tubular necrosis; M81.0 Age-related osteoporosis without current pathological fracture; L89.91 Pressure ulcer of unspecified site, stage 1; L97.309 Non-pressure chronic ulcer of unspecified ankle with unspecified severity; B96.20 Unspecified Escherichia coli [E. coli] as the cause of diseases classified elsewhere; F17.200 Nicotine dependence, unspecified, uncomplicated; Z79.899 Other long term (current) drug therapy; Z79.83 Long term (current) use of bisphosphonates; K59.09 Other constipation; M10.9 Gout, unspecified; R73.09 Other abnormal glucose
CPT/HCPCS: 96376; 96361 ×2; 96366; 96365; 96367; 99285; 36415; 93005; 97162; 97166; 83880; 80053 ×2; 85652; 82140; 83735; 84100; 84550; 85025; 85027; 81001; 87040; 87324; 87086; 87077; 87186; 87636; 73610; 71046; 70450; G0378 ×7; J0696 ×3; J2270